=== PATIENT | male | born 1950 | race Caucasian/White ===

== ENCOUNTER 2024-03-04 10:24 | Outpatient (AMB) | payer MEDICARE, SELFPAY ==
--- NOTE | 2024-03-04 10:28 | A.OFFPC_ITS ---
Vital Signs 03/04/24 10:39 03/04/24 11:19 Height 5 ft 10 in Weight 222 lb BMI 31.9 BP 144/78 H 122/82 Blood Pressure Location Rt brachial Position Sitting Respiration 13 Pulse 75 Pulse Source Pulse Oximeter Pulse Oximetry (%) 96 Oxygen Delivery Method Room Air Intake Visit Reasons: est care Intake Note: new patient to establish care Learning Disabilities Resource Teacher Required: No Allergies No Known Allergies Allergy (Verified 03/04/24 10:31) Medication List - Last Reconciled 03/04/24 by Krissy Robbins PA-C lisinopril 30 mg PO DAILY omeprazole 20 mg PO DAILY sildenafil (Viagra) 100 mg PO DAILY PRN Tobacco use date assessed: 03/04/24 Fall risk assessment: No Falls in past year Last assessed Fall Risk: 03/04/24 Dental Screening Dental Screen Date: 03/04/24 Did you have a dental visit in the last 12 months?: No Did you have a dental problem in the last 6 months where you did not have access to dental care?: No Was dental information given to patient?: Patient has dentist HPI est care HPI Details Patient is a 73-year-old male with a significant past medical history of hypertension, GERD, erectile dysfunction presenting today to establish care. He is transferring from [place]. There are no records today. He states that he is going to sign for these. He states he does not like the idea of having to come in unless there is something wrong with him. CV: Blood pressure today in the office is 144/78. He is currently on l isinopril 30 mg daily. Cholesterol has been diet controlled. Denies any chest pain, shortness a breath or palpitations. GI: Omeprazole 20 mg daily controls GERD. He has had an endoscopy many years ago. Believes it was most likely related to drinking at the time. He states that he has adopted a healthier lifestyle and believes he may be able to come off of the omeprazole but just has not tried. Urology: has had elevated psas in the past but was told it was normal after further work up Colonoscopy: never had- states he will not PSA: overdue Immunizations: states he had the shingles vaccine, flu shot utd [facility] Medical History (Updated 03/04/24 @ 11:14 by Krissy Robbins PA-C) High cholesterol Hernia Surgical History (Updated 03/04/24 @ 11:14 by Krissy Robbins PA-C) H/O right inguinal hernia repair Family History (Updated 03/04/24 @ 10:38 by Jodee Ibarra MA) Mother Cancer Father Hypertension Cardiovascular disease Social History Household Members: Spouse Both parents involved: No Caregiver staying overnight: No Housing: House Are you a primary med care manager to a significant other at home: No Do you presently have visiting nurse or other home services: No 75 years or older and lives alone: No Alcohol intake: never Patient Tobacco Use Status: Never used Tobacco e-Cigarette/Vaping Use: Never Used Second Hand Smoke Exposure: No Current occupational status: retired Cognitive needs: No Hearing needs: No Vision needs: No Questionnaire PHQ-9 Over the last 2 weeks, how often have you been bothered by any of the following problems? 1. Little interest or pleasure in doing things: not at all 2. Feeling down, depressed, or hopeless: not at all 3. Trouble falling or staying asleep, or sleeping too much: not at all 4. Feeling tired or having little energy: not at all 5. Poor appetite or overeating: not at all 6. Feeling bad about yourself - or that you are a failure or have let yourself or your family down: not at all 7. Trouble concentrating on things, such as reading the newspaper or watching television: not at all 8. Moving or speaking so slowly that other people could have noticed. Or the opposite - being so fidgety or restless that you have been moving around a lot more than usual: not at all 9. Thoughts that you would be better off or of hurting yourself in some way: not at all Total score: 0 Depression Screening Interpretation: Negative Depression Screening Done: Yes 68784 - PHQ-9 Billing: Yes Source: Developed by Drs. Philipp Fuentes, Tracy Little, Rocco Kaur and colleagues, with an educational maria del rosario from [employer]. Thrive Questionnaire Date Thrive assessed: 03/04/24 I am a: Patient What is your living situation today?: I have a steady place to live Within the past 12 months, did the food you bought not last and you didn't have the money to get more?: Never true Within the past 12 months, did you worry whether your food would run out before you got money to buy more?: Never true Do you have trouble paying for medicines?: No Do you have trouble getting transportation to medical appointments?: No Do you have trouble paying your heating and electricity bill?: No Do you have trouble taking care of your child, family member or friend?: No Do you have trouble with day-to-day activities such as bathing, preparing meals, shopping, managing finances, etc.?: No Are you currently unemployed and looking for a job?: No Are you interested in more education?: No Please select the resources that you would like help with: None Currently or been in a relationship where the following occur: No concerns reported THRIVE Score: 0 AUDIT C Alcohol Use Questionnaire (AUDIT-C) 1. How often do you have a drink containing alcohol?: Never 3. How often do you have six or more drinks on one occasion?: Never Total Score: 0 Score Reviewed/Action Taken: Yes RAMIREZ-7 AMB Questionnaire RAMIREZ-7 Date RAMIREZ - 7 assessed: 03/04/24 Feeling nervous, anxious, or on edge: 0 = Not at all Not being able to stop or control worryin = Not at all Worrying too much about different things: 0 = Not at all Trouble relaxin = Not at all Being so restless that it is hard to sit still: 0 = Not at all Becoming easily annoyed or irritable: 0 = Not at all Feeling afraid as if something awful might happen: 0 = Not at all Total RAMIREZ-7 score (0-4 normal; 5-9 mild; 10-14 moderate; 15-21 severe): 0 Source: Developed by Drs. Philipp Fuentes, Tracy Little, Rocco Kaur and colleagues, with an educational maria del rosario from [employer]. RAMIREZ-7 Assessment Billing RAMIREZ-7 Assessment Tool: RAMIREZ-7 Assessment 32932 Physical exam (Primary Care) PHQ-9: PHQ-9 Score PHQ-9: Total score 0 03/04/24 10:29 Depression Screening Interpretation: Negative Thrive Assessment: Date of Thrive Assessment Date Thrive assessed 03/04/24 03/04/24 10:31 Currently or been in a relationship where the following occur: No concerns reported Const Orientation/consciousness: patient oriented x3 HENMT Ears: hearing grossly normal bilaterally Neck Thyroid: Thyroid normal Lymphatic: no lymphadenopathy noted Resp Auscultation: clear to auscultation bilaterally Cardio Rate: regular rate Rhythm: regular rhythm Heart sounds: S1 normal heart sound present and S2 normal heart sound present GI Inspection: Yes normal to inspection Palpation (GI): Soft to palpation and Other GI palpation findings present (nontender, no cva tenderness) Auscultation: normoactive bowel sounds Rectal Exam - Male: Yes deferred Skin General skin exam: no rashes or lesions noted Neuro General: patient oriented x3, gait normal and no focal motor deficits Coding Level of Care Code New Pt Level 4 (38803) Complex EM visit Add On G2211 Diagnoses HTN (hypertension) I10 GERD (gastroesophageal reflux disease) K21.9 Osteoarthritis M19.90 Additional Codes RAMIREZ-7 Assessment Billing - RAMIREZ-7 Assessment Tool: RAMIREZ-7 Assessment 19846 ([id number]) PHQ-9 - 97163 - PHQ-9 Billing: Yes ([id number]) Assessment & Plan Assessment & Plan (1) HTN (hypertension): Code(s): I10 - Essential (primary) hypertension Category: Medical Plan: Blood pressure WNL. Continue current regimen. (2) GERD (gastroesophageal reflux disease): Code(s): K21.9 - Gastro-esophageal reflux disease without esophagitis Category: Medical Plan: Controlled on omeprazole. States that he has not tried to taper off of this in years and is going to try to see what happens. He believes in the past this was mostly related to his alcohol use in since he has not drank he is going to try to get for this. (3) Osteoarthritis: Code(s): M19.90 - Unspecified osteoarthritis, unspecified site Category: Medical Plan: History of this. Intermittently uses NSAID. Plan Labs ordered. PSA and Cologuard ordered. Orders: Orders Complete Blood Count Auto Diff Today I10 - Essential (primary) hypertension, K21.9 - Gastro-esophageal reflux disease without esophagitis, M19.90 - Unspecified osteoarthritis, unspecified site, Z87.19 - Personal history of other diseases of the digestive system, Z98.890 - Other specified postprocedural s tates UA CC w/rflx Micro + Cult Today Z13.220 - Encounter for screening for lipoid disorders Comprehensive [place]. Panel Fast Today I10 - Essential (primary) hypertension, K21.9 - Gastro-esophageal reflux disease without esophagitis, M19.90 - Unspecified osteoarthritis, unspecified site, Z87.19 - Personal history of other diseases of the digestive system, Z98.890 - Other specified postprocedural states Lipid Panel Today I10 - Essential (primary) hypertension, K21.9 - Gastro- esophageal reflux disease without esophagitis, M19.90 - Unspecified osteoarthritis, unspecified site, Z87.19 - Personal history of other diseases of the digestive system, Z98.890 - Other specified postprocedural states TSH reflex Free T4 Today I10 - Essential (primary) hypertension, K21.9 - Gastro-esophageal reflux disease without esophagitis, M19.90 - Unspecified osteoarthritis, unspecified site, Z87.19 - Personal history of other diseases of the digestive system, Z98.890 - Other specified postprocedural states Prostate Specific Antigen Scr Today I10 - Essential (primary) hypertension, K21.9 - Gastro-esophageal reflux disease without esophagitis, M19.90 - Unspecified osteoarthritis, unspecified site, Z01.89 - Encounter for other specified special examinations, Z87.19 - Personal history of other diseases of the digestive system, Z98.890 - Other specified postprocedural states Referrals Cologuard Test Z12.11 - Encounter for screening for malignant neoplasm of colon
[2024-03-04 10:39] VITALS: BP 144/78; PULSE 75; RESP 13; O2SAT 96; BMI 31.9
[2024-03-04 11:19] VITALS: BP 122/82
== END 2024-03-04 11:24 | disposition home or self-care (01) ==
PROVIDERS: PCP Internal Medicine; Visit Provider Physician Assistant
DX: I10 Essential (primary) hypertension (principal); K21.9 Gastro-esophageal reflux disease without esophagitis; M19.90 Unspecified osteoarthritis, unspecified site

== ENCOUNTER → 2024-03-04 10:24 | Outpatient (BNVA) | payer MEDICARE, SELFPAY | PROVIDERS: PCP Internal Medicine; Visit Provider Physician Assistant | DX: I10 Essential (primary) hypertension (principal); K21.9 Gastro-esophageal reflux disease without esophagitis; N52.9 Male erectile dysfunction, unspecified; M19.90 Unspecified osteoarthritis, unspecified site; Z87.19 Personal history of other diseases of the digestive system; Z98.890 Other specified postprocedural states | CPT/HCPCS: 96127; 99202 ==

== ENCOUNTER 2025-01-19 09:10 | Outpatient (AMB) | payer MEDICARE, SELFPAY ==
--- NOTE | 2025-01-19 09:13 | A.OFFPC_ITS ---
Vital Signs 01/19/25 09:16 Height 5 ft 10 in Weight 220 lb 6 oz BMI 31.6 BP 122/82 Blood Pressure Location Rt brachial Respiration 14 Pulse 82 Pulse Source Pulse Oximeter Temp 97.6 F Temp Source Oral Pulse Oximetry (%) 98 Oxygen Delivery Method Room Air Intake Visit Reasons: CPE - see comments Intake Note: Physical Counseling Services Manager Required: No Allergies No Known Allergies Allergy (Verified 01/19/25 09:15) Medication List - Last Reconciled 01/19/25 by Krissy Robbins PA-C ibuprofen 200 mg PO Q6H PRN lisinopril 30 mg PO DAILY omeprazole 20 mg PO DAILY sildenafil (Viagra) 100 mg PO DAILY PRN Tobacco use date assessed: 01/19/25 Fall risk assessment: No Falls in past year Last assessed Fall Risk: 01/19/25 Dental Screening Dental Screen Date: 03/04/24 HPI CPE - see comments HPI Details Patient is a 74-year-old male with a significant past medical history of hypertension, GERD, erectile dysfunction presenting today for a cpe. He never did labs. He is transferring from [place]. There are no records today. CV: Blood pressure today in the office is 122/82. He is currently on lisinopril 30 mg daily. Cholesterol has been diet controlled. He does not want to take statins. He states he did not tolerate them. Denies any chest pain, shortness a breath or palpitations. GI: Omeprazole 20 mg daily controls GERD. He has had an endoscopy many years ago. Believes it was most likely related to drinking at the time. He has not yet tried to come off of this and does not want to. Urology: He was seen for a kidney stone at [place] in October and saw urology. has had elevated psas in the past but was told it was normal after further work up Psych: he is struggling with staying asleep. He states that his snores and it is hard for him. He has been taking [id number] sleep aids with some improvement but would like something that is a little stronger. Colonoscopy: never had- states he will not PSA: overdue Immunizations: states he had the shingles vaccine, flu shot cod [facility] Medical History (Updated 01/19/25 @ 10:08 by Krissy Robbins PA-C) High cholesterol Hernia Surgical History H/O right inguinal hernia repair Family History Mother Cancer Father Hypertension Cardiovascular disease Social History (Updated 01/19/25 @ 09:22 by Kimberley Blank CMA) Household Members: Spouse Both parents involved: No Caregiver staying overnight: No Housing: House Are you a primary occasional caregiver to a significant other at home: No Do you presently have visiting nurse or other home services: No 75 years or older and lives alone: No Alcohol intake: never Patient Tobacco Use Status: Never used Tobacco e-Cigarette/Vaping Use: Never Used Second Hand Smoke Exposure: No Use of substances other than those prescribed or required for medical reasons: No Current occupational status: retired Cognitive needs: No Hearing needs: No Vision needs: No Questionnaire Thrive Questionnaire Date Thrive assessed: 03/04/24 I am a: Patient What is your living situation today?: I have a steady place to live Within the past 12 months, did the food you bought not last and you didn't have the money to get more?: Never true Within the past 12 months, did you worry whether your food would run out before you got money to buy more?: Never true Do you have trouble paying for medicines?: No Do you have trouble getting transportation to medical appointments?: No Do you have trouble paying your heating and electricity bill?: No Do you have trouble taking care of your child, family member or friend?: No Do you have trouble with day-to-day activities such as bathing, preparing meals, shopping, managing finances, etc.?: No Are you currently unemployed and looking for a job?: No Are you interested in more education?: No Please select the resources that you would like help with: None Currently or been in a relationship where the following occur: No concerns reported THRIVE Score: 0 AUDIT C Alcohol Use Questionnaire (AUDIT-C) 1. How often do you have a drink containing alcohol?: Never 3. How often do you have six or more drinks on one occasion?: Never Total Score: 0 RAMIREZ-7 AMB Questionnaire RAMIREZ-7 Date RAMIREZ - 7 assessed: 03/04/24 Source: Developed by Drs. Philipp Fuentes, Tracy Little, Rocco Kaur and colleagues, with an educational maria del rosario from [employer]. Physical exam (Primary Care) Vital Signs: Last Vital Signs Temp 97.6 F 01/19/25 09:16 Pulse 82 01/19/25 09:16 Resp 14 01/19/25 09:16 BP 122/82 01/19/25 09:16 Pulse Ox 98 01/19/25 09:16 Oxygen Delivery Method Room Air 01/19/25 09:16 BMI result Body Mass Index 31.6 Tobacco/Smoking Status: Tobacco use Status Tobacco use date assessed 01/19/25 01/19/25 09:21 Patient Tobacco Use Status Never used Tobacco 01/19/25 09:22 e-Cigarette/Vaping Use Never Used 01/19/25 09:22 Thrive Assessment: Date of Thrive Assessment Date Thrive assessed 03/04/24 01/19/25 09:14 Currently or been in a relationship where the following occur: No concerns reported Const Orientation/consciousness: patient oriented x3 HENMT Ears: hearing grossly normal bilaterally and TM's normal bilaterally General nose exam: No nasal polyps present Face and sinus: Yes sinuses nontender Mouth: Normal oral and palatal mucosa present Eyes Pupils: Equal, round and reactive pupils present EOM: EOMs intact bilaterally Neck Neck: Yes full ROM and Yes no lymphadenopathy Thyroid: Thyroid normal Chest Chest palpation & inspection: normal inspection of the chest Resp Auscultation: clear to auscultation bilaterally Cardio Rate: regular rate Rhythm: regular rhythm Heart sounds: S1 normal heart sound present and S2 normal heart sound present Peripheral pulses: Peripheral pulses 2+ throughout GI Other: Soft, nontender Auscultation: normal bowel sounds Rectal Exam - Male: Yes deferred General: Yes no CVA tenderness Back/Spine/Pelvis Other: Nontender Back: no CVA tenderness Skin General skin exam: no rashes or lesions noted Neuro General: patient oriented x3, gait normal, CN's II-XI intact bilaterally and deep tendon reflexes 2+ bilaterally Cranial nerves: Yes Equal, round and reactive pupils present Motor exam (neuro): 5/5 motor strength present throughout Sensory Exam: double simultaneous stimulation for sensation normal Coordination: iquxuk-bd-evhe test normal and Romberg test negative Extrem General: Yes normal to inspection and Yes full ROM Psych Affect: normal affect Attitude: cooperative Thought process: Normal thought process present Thought content: Normal thought content present Insight: Good insight present (Psych) Judgement: Good judgement present (Psych) Coding Level of Care Code Est Pt Prev Care >65y(27780) Diagnoses Routine general medical examination at a health care facility Z00.00 Insomnia G47.00 HTN (hypertension) I10 Assessment & Plan Assessment & Plan (1) Routine general medical examination at a health care facility: Code(s): Z00.00 - Encounter for general adult medical examination without abnormal findings Plan: Health maintenance reviewed Reports immunizations up-to-date Advised that he needs to complete labs Declines colon cancer screening (2) Insomnia: Code(s): G47.00 - Insomnia, unspecified Category: Medical Plan: We will try trazodone. We discussed risks and benefits and adverse effects of this medication at length Declines sleep study Advised to complete labs (3) HTN (hypertension): Code(s): I10 - Essential (primary) hypertension Category: Medical Plan: WNL. Continue current regimen Medications: New trazodone 50 mg PO BEDTIME PRN 30 tabs 0RF sleep
[2025-01-19 09:16] VITALS: BP 122/82; PULSE 82; RESP 14; TEMP 36.4; O2SAT 98; BMI 31.6
== END 2025-01-19 13:34 | disposition home or self-care (01) ==
LOC: HO.HMCFM 09:11
PROVIDERS: PCP Physician Assistant; Visit Provider Physician Assistant
DX: Z00.00 Encounter for general adult medical examination without abnormal findings (principal); G47.00 Insomnia, unspecified; I10 Essential (primary) hypertension

== ENCOUNTER → 2025-01-19 09:10 | Outpatient (BNVA) | payer MEDICARE, SELFPAY | PROVIDERS: PCP Physician Assistant; Visit Provider Physician Assistant | DX: Z00.00 Encounter for general adult medical examination without abnormal findings (principal); I10 Essential (primary) hypertension; G47.00 Insomnia, unspecified; K21.9 Gastro-esophageal reflux disease without esophagitis; N20.0 Calculus of kidney | CPT/HCPCS: 99397 ==